=== PATIENT | male | born 1975 | race African-American/Black ===

== ENCOUNTER 2017-03-20 11:15 | Emergency (ER) | payer OTHER ==
[~2017-03-20] VITALS: Ht 175.3 cm; Wt 99.8 kg
[2017-03-20 11:15] VITALS: BP 151/87
== END 2017-03-20 13:11 | disposition home or self-care (01) ==
LOC: ER 11:17
DX: R05 Cough (principal); F17.200 Nicotine dependence, unspecified, uncomplicated
CPT/HCPCS: 99283; A4606; Z7610

== ENCOUNTER 2017-03-27 19:49 | Emergency (ER) | payer OTHER ==
[~2017-03-27] VITALS: Ht 172.7 cm; Wt 80.7 kg
[2017-03-27 19:55] VITALS: BP 155/96
--- NOTE | 2017-03-27 20:23 | NUR ---
RADIOLOGY AT BEDSIDE FOR CHEST XRAY.
[2017-03-27] MEDS ORDERED: ALBUTEROL FS 2.5 MG/3 ML VIAL.NEB NEB ONE (20:30)
[2017-03-27] MEDS ORDERED: ALBUTEROL FS 2.5 MG/3 ML VIAL.NEB ONE (20:45)
== END 2017-03-27 21:20 | disposition home or self-care (01) ==
LOC: ER 19:49
DX: R05 Cough (principal); F17.200 Nicotine dependence, unspecified, uncomplicated
CPT/HCPCS: 71010-TC; A4606; Z7610

== ENCOUNTER 2024-10-15 14:21 | Emergency (ER) | payer OTHER ==
[~2024-10-15] VITALS: Ht 180.3 cm; Wt 104.3 kg
[2024-10-15 15:01] VITALS: BP 170/115; TEMP 98
[2024-10-15] MEDS ORDERED: HYDR30CR99 RC (15:21)
[2024-10-15] MEDS ORDERED: DOCU-141 PO (15:21)
[2024-10-15 15:42] VITALS: O2SAT 99
== END 2024-10-15 15:43 | disposition home or self-care (01) ==
LOC: ER 14:29
DX: K60.2 Anal fissure, unspecified (principal); K59.00 Constipation, unspecified; F17.200 Nicotine dependence, unspecified, uncomplicated

== ENCOUNTER 2024-11-03 23:11 | Emergency (ER) | payer OTHER ==
[~2024-11-03] VITALS: Ht 177.8 cm; Wt 102.1 kg
[2024-11-03 23:11] VITALS: BP 137/85; TEMP 98.2; O2SAT 97
[~2024-11-03 23:11] MED LIST: DOCU-141 PO; HYDR30CR99 RC
[2024-11-04] MEDS ORDERED: AMOX-430 PO (00:01)
[2024-11-04] MEDS ORDERED: TRAM50TA2 PO (00:01)
[2024-11-04] MEDS ORDERED: IBUP-1957 PO (00:01)
== END 2024-11-04 00:31 | disposition home or self-care (01) ==
LOC: ER 23:15
DX: M27.3 Alveolitis of jaws (principal); K08.89 Other specified disorders of teeth and supporting structures; F17.200 Nicotine dependence, unspecified, uncomplicated; Z79.1 Long term (current) use of non-steroidal anti-inflammatories (NSAID)

== ENCOUNTER 2024-11-24 06:37 | Emergency (ER) | payer OTHER ==
[~2024-11-24] VITALS: Ht 180.3 cm; Wt 89.4 kg
[~2024-11-24 06:37] MED LIST changes: +AMOX-430 PO; +IBUP-1957 PO; +TRAM50TA2 PO
[2024-11-24 07:48] LABS: BASOPHILS % (AUTO) 0.1 % (0.0-2.0); EOSINOPHILS # (AUTO) 0.1 K/uL (0.0-0.7); EOSINOPHILS % (AUTO) 0.8 % (0.0-6.0); HEMATOCRIT 36 % (39-51); HEMOGLOBIN 12.5 g/dL (13.5-17.5); LYMPHOCYTES # (AUTO) 1.8 K/uL (0.8-4.8); LYMPHOCYTES % (AUTO) 27.8 % (20.0-44.0); MEAN CORPUSCULAR HEMOGLOBIN 28 PG (26.0-33.0); MEAN CORPUSCULAR HGB CONC 35 g/dl (31.0-36.0); MEAN CORPUSCULAR VOLUME 82 fL (80-96); MONOCYTES # (AUTO) 0.6 K/uL (0.1-1.30); MONOCYTES % (AUTO) 9.7 % (2.0-12.0); NEUTROPHILS % (AUTO) 61.6 % (43.0-81.0); PLATELET COUNT (AUTO) 177 K/uL (150-450); RED BLOOD CELL COUNT(AUTO) 4.42 MIL/uL (4.5-6.0); RED CELL DISTRIBUTION WIDTH 13.5 % (11.5-15.0); WHITE BLOOD COUNT (AUTO) 6.5 K/uL (4.3-11.0)
[2024-11-24 08:12] LABS: ALANINE AMINOTRANSFERASE 42 U/L (12-78); ALBUMIN 2.5 g/dL (3.4-5.0); ALKALINE PHOSPHATASE 120 U/L (46-116); ASPARTATE AMINOTRANSFERASE 56 U/L (15-37); BILIRUBIN,DIRECT 0.2 mg/dL (0.0-0.2); BILIRUBIN,TOTAL 0.6 mg/dL (0.2-1.0); CALCIUM, SERUM 7.9 mg/dL (8.5-10.1); CARBON DIOXIDE 26 mmol/L (21-32); CHLORIDE 96 mmol/L (98-107); CREATININE 1.2 mg/dL (0.6-1.3); GLUCOSE 111 mg/dL (74-106); NT-PRO BNP 127 pg/mL (0-125); POTASSIUM 3.9 mmol/L (3.5-5.1); SODIUM SERUM 126 mmol/L (136-145); TOTAL PROTEIN, SERUM 9.7 g/dL (6.4-8.2); UREA NITROGEN, BLOOD 12 mg/dL (7-18)
[2024-11-24] MEDS ORDERED: ALBU18HF2 INH (10:00)
[2024-11-24 10:24] VITALS: BP 114/74; TEMP 99.8; O2SAT 99
== END 2024-11-24 10:24 | disposition home or self-care (01) ==
LOC: ER 06:46
DX: R05.9 Cough, unspecified (principal); R50.9 Fever, unspecified; R07.9 Chest pain, unspecified; F17.200 Nicotine dependence, unspecified, uncomplicated; Z79.1 Long term (current) use of non-steroidal anti-inflammatories (NSAID); Z20.822 Contact with and (suspected) exposure to COVID-19
CPT/HCPCS: 36415; 71045-TC; 80048-TC; 80076-TC; 83880; 84484-TC; 85025-TC